=== PATIENT | female | born 1965 | race Caucasian/White ===

== ENCOUNTER → 2021-02-24 16:53 | Emergency (ER) | payer SELFPAY ==
[~2021-02-24 16:53] MED LIST: ACYCLOVIR800 MG PO; HYDROCODON-ACE1 EAC4 PO; NEURONTIN100 MG PO
== END | disposition home or self-care (01) ==
LOC: ER1 16:53
DX: B02.9 Zoster without complications (principal); E78.5 Hyperlipidemia, unspecified
CPT/HCPCS: 99282